=== PATIENT | female | born 1995 | race Caucasian/White ===

== ENCOUNTER 2023-11-24 10:39 | Emergency (ER) | payer OTHER ==
[2023-11-24 10:49] VITALS: BP 102/67; PULSE 73; RESP 16; TEMP 98.8; BMI 32.4
[2023-11-24 11:27] LABS: HCG,QUALITATIVE URINE Positive
[2023-11-24 11:32] LABS: EPI CELLS 34 /uL (0-25.1); HYALINE CASTS 0 /uL (0-3.1); PH,URINE 7.5 (5.0-8.0); URINE APPEARANCE TURBID; URINE BACTERIA 681 /uL (0-1359); URINE BILIRUBIN NEGATIVE (NEGATIVE); URINE COLOR YELLOW; URINE GLUCOSE (UA) NEGATIVE (NEGATIVE); URINE KETONE NEGATIVE (NEGATIVE); URINE LEUK ESTERASE TRACE (NEGATIVE); URINE NITRITE NEGATIVE (NEGATIVE); URINE PROTEIN NEGATIVE (NEGATIVE); URINE RBC 12 /uL (0-23.9); URINE WBC 8 /uL (0-25.8)
[2023-11-24 12:02] LABS: BASO % 0.5 % (0-2.0); EOS % 1.1 % (0-4.5); HEMATOCRIT 34.8 % (32.4-45.2); HEMOGLOBIN 11.6 GM/dL (10.7-15.3); LYMPH % 16.9 % (8-40); MCH 30.1 pg (25.7-33.7); MCHC 33.3 g/dl (32.0-36.0); MEAN CELL VOLUME 90.5 fl (80-96); MEAN PLT VOLUME 8.3 fl (7.5-11.1); MONO % 3.6 % (3.8-10.2); NEUT % 77.9 % (42.8-82.8); PLATELET COUNT 227 10^3/uL (134-434); RBC 3.84 M/mm3 (3.60-5.2); RDW 14.1 % (11.6-15.6)
[2023-11-24 12:10] LABS: INR 0.99 (0.83-1.09); PROTHROMBIN TIME (PATIENT) 11.4 SEC (9.7-13.0)
[2023-11-24 12:13] LABS: ACTIVATED PTT 30.1 SECONDS (25.2-36.5)
[2023-11-24 12:33] LABS: POTASSIUM 4.2 mmol/L (3.5-5.1)
[2023-11-24 12:34] LABS: CALCIUM 8.7 mg/dL (8.5-10.1)
[2023-11-24 12:35] LABS: BLOOD UREA NITROGEN 8.7 mg/dL (7-18)
[2023-11-24 12:38] LABS: CREATININE 0.4 mg/dL (0.55-1.3)
== END 2023-11-24 14:13 | disposition home or self-care (01) ==
LOC: JER 10:39
DX: O20.9 Hemorrhage in early pregnancy, unspecified (principal); O26.892 Other specified pregnancy related conditions, second trimester; R10.30 Lower abdominal pain, unspecified; Z3A.15 15 weeks gestation of pregnancy
CPT/HCPCS: 36415; 76815-TC; 80048; 81003; 84702; 84703; 85025; 85610; 85730; 86850; 86900; 86901; 87086; 99284-25